=== PATIENT | female | born 1985 | race Two or more races ===

== ENCOUNTER 2020-08-31 01:14 | Inpatient (IN) | payer MEDICAID ==
[~2020-08-31] VITALS: Ht 162.6 cm; Wt 119.5 kg
[2020-08-31] MEDS ORDERED: LORazepam 2 MG TABLET PO PRN ×2 (02:15→10:45)
[2020-08-31] MEDS ORDERED: ZOLPIDEM TARTRATE 10 MG TABLET PO PRN ×2 (02:15→10:45)
[2020-08-31] MEDS ORDERED: OLANZapine 5 MG RAPDIS TABLET PO PRN ×2 (02:15→10:45)
[2020-08-31] MEDS ORDERED: LIDOCAINE 2%/EPI 1:200,000/PF 20 ML VIAL ID ONE (04:30)
[2020-08-31] MEDS ORDERED: LORazepam 2 MG/ML VIAL IM ONE (04:30)
[2020-08-31 04:45] LABS: COVID AG,FIA SOURCE NASOPHARYNGEAL
[2020-08-31] MEDS ORDERED: POVIDONE-IODINE 10% 15 ML SOLUTION UD ONE (04:49)
[2020-08-31 09:05] VITALS: BP 108/75
[2020-08-31] MEDS ORDERED: PNEUMOCOCCAL VACCINE POLYVALENT 0.5 ML VIAL [PPSV23] IM. ONE (10:00)
[2020-08-31] MEDS ORDERED: HydrOXYzine PAMOATE 50 MG CAPSULE PO PRN (10:45)
[2020-08-31] MEDS ORDERED: LORazepam 1 MG TABLET PO PRN (10:45)
[2020-08-31] MEDS ORDERED: MAG HYDROX/AL HYDROX/SIMETH ES 30 ML SUSPENSION UDCUP PO PRN (10:45)
[2020-08-31] MEDS ORDERED: ACETAMINOPHEN 325 MG TABLET PO PRN (10:45)
[2020-08-31] MEDS ORDERED: GuaiFENesin/D-METHORPHAN [SUGAR-FREE] 200-20MG/10 ML SYRUP UDCUP PO PRN (10:45)
[2020-08-31] MEDS ORDERED: TUBERCULIN, PURIFIED PROTEIN DERIVATIVE 5 TU/0.1 ML SYRINGE ID ONE (10:45)
[2020-08-31] MEDS ORDERED: PROMETHAZINE HCL 25 MG TABLET PO PRN (10:45)
[2020-08-31] MEDS ORDERED: LOPERAMIDE HCL 2 MG CAPSULE PO PRN (10:45)
[2020-08-31] MEDS ORDERED: MAGNESIUM HYDROXIDE SUSPENSION 30 ML UDCUP PO PRN (10:45)
[2020-08-31] MEDS ORDERED: BACITRACIN/POLYMYXIN B 15 GM OINTMENT TP PRN (10:45)
[2020-08-31 16:05] VITALS: BP 106/64
[2020-08-31 16:39] LABS: APPEARANCE,URINE CLEAR (CLEAR); BILIRUBIN,URINE NEGATIVE (NEGATIVE); GLUCOSE, URINE (UA) NEGATIVE (NEGATIVE); KETONES,URINE 15 mg/dL (NEGATIVE); LEUKOCYTE ESTERASE ,URINE NEGATIVE (NEGATIVE); NITRATE,URINE NEGATIVE (NEGATIVE); OCCULT BLOOD,URINE NEGATIVE (NEGATIVE); PH,URINE 6.5 (5.0-8.0); PROTEIN,URINE NEGATIVE (NEGATIVE); UROBILINOGEN,URINE 0.2 mg/dL (<=1.0)
[2020-08-31 16:45] LABS: AMPHET/METH SCREEN,URINE NEGATIVE (NEGATIVE); BARBITURATE SCREEN, URINE NEGATIVE (NEGATIVE); BENZODIAZEPINES SCREEN,URINE NEGATIVE (NEGATIVE); CANNABINOID SCREEN,URINE NEGATIVE (NEGATIVE); COCAINE SCREEN,URINE NEGATIVE (NEGATIVE); METHADONE SCREEN, URINE NEGATIVE (NEGATIVE); OPIATE SCREEN,URINE NEGATIVE (NEGATIVE)
[2020-08-31 16:46] LABS: PHENCYCLIDINE SCREEN,URINE NEGATIVE (NEGATIVE)
[2020-08-31] MEDS: THIAMINE 100 MG TABLET PO SCH (17:31)
[2020-08-31] MEDS ORDERED: OLANZapine 5 MG RAPDIS TABLET PO SCH (21:00)
[2020-08-31] MEDS: MELATONIN 5 MG TABLET PO SCH (21:05)
[2020-09-01 07:50] LABS: HEMOGLOBIN A1C 5.5 % (3.8-5.6)
[2020-09-01 07:52] LABS: CHOL/HDL RATIO 3.9 (3.9-5.7); FREE T4 (FREE THYROXINE) 0.93 ng/dL (0.76-1.46); THYROID STIMULATING HORMONE 0.96 uIU/mL (0.36-3.74)
[2020-09-01] MEDS: FLUoxetine HCL 20 MG CAPSULE PO SCH (08:37)
[2020-09-01] MEDS: THIAMINE 100 MG TABLET PO SCH ×2 (08:37→16:04)
[2020-09-01] MEDS: MULTIVITAMINS WITH MINERALS, THERAPEUTIC TABLET PO SCH (08:37)
[2020-09-01] MEDS: OMEGA-3/DHA/EPA/FISH OIL 1,000 MG CAPSULE PO SCH (08:37)
[2020-09-01] MEDS: FOLIC ACID 1 MG TABLET PO SCH (08:37)
[2020-09-01 10:18] VITALS: BP 109/74
[2020-09-01 16:13] VITALS: BP 102/59
[2020-09-01] MEDS: MELATONIN 5 MG TABLET PO SCH (20:29)
[2020-09-01] MEDS: OLANZapine 10 MG RAPDIS TABLET PO SCH (20:29)
[2020-09-02 08:00] VITALS: BP 122/89
[2020-09-02] MEDS: MULTIVITAMINS WITH MINERALS, THERAPEUTIC TABLET PO SCH (08:09)
[2020-09-02] MEDS: THIAMINE 100 MG TABLET PO SCH ×2 (08:09→16:27)
[2020-09-02] MEDS: OMEGA-3/DHA/EPA/FISH OIL 1,000 MG CAPSULE PO SCH (08:09)
[2020-09-02] MEDS: FOLIC ACID 1 MG TABLET PO SCH (08:09)
[2020-09-02] MEDS: FLUoxetine HCL 20 MG CAPSULE PO SCH (08:09)
[2020-09-02 16:08] VITALS: BP 136/90
[2020-09-02] MEDS ORDERED: FLUO20CA36 PO (20:11)
[2020-09-02] MEDS ORDERED: MELA5TAB3 PO (20:11)
[2020-09-02] MEDS ORDERED: OMEG-135 PO (20:11)
[2020-09-02] MEDS ORDERED: OLAN10TA26 PO (20:11)
[2020-09-02] MEDS: OLANZapine 10 MG RAPDIS TABLET PO SCH (20:24)
[2020-09-02] MEDS: MELATONIN 5 MG TABLET PO SCH (20:24)
[2020-09-03] MEDS: OMEGA-3/DHA/EPA/FISH OIL 1,000 MG CAPSULE PO SCH (08:41)
[2020-09-03] MEDS: THIAMINE 100 MG TABLET PO SCH (08:41)
[2020-09-03] MEDS: FOLIC ACID 1 MG TABLET PO SCH (08:41)
[2020-09-03] MEDS: MULTIVITAMINS WITH MINERALS, THERAPEUTIC TABLET PO SCH (08:41)
[2020-09-03 08:59] VITALS: BP 128/85
[2020-09-03] MEDS ORDERED: FLUoxetine HCL 20 MG CAPSULE PO SCH (09:00)
== END 2020-09-03 14:40 | disposition home or self-care (01) | DRG 753 ==
LOC: EMS 01:16 → 3EC 02:17 → UNDOADMIN 03:28 → 3EC 10:52
PROVIDERS: ADMIT Psychiatry & Neurology Psychiatry; ATTEND Psychiatry & Neurology Psychiatry
DX: F31.4 Bipolar disorder, current episode depressed, severe, without psychotic features (principal); R45.851 Suicidal ideations; S51.812A Laceration without foreign body of left forearm, initial encounter; S61.512A Laceration without foreign body of left wrist, initial encounter; X58.XXXA Exposure to other specified factors, initial encounter; Z20.822 Contact with and (suspected) exposure to COVID-19; Y93.89 Activity, other specified; Z91.5 Personal history of self-harm; Z65.3 Problems related to other legal circumstances; Z59.0 Homelessness; Z55.9 Problems related to education and literacy, unspecified; Y92.89 Other specified places as the place of occurrence of the external cause; Y99.8 Other external cause status; Z88.0 Allergy status to penicillin
CPT/HCPCS: 80061; 80307; 81003; 83036; 84439; 84443; 84702; 86592; 87426; 99285; A9575; J2060